=== PATIENT | female | born 1950 | race Caucasian/White ===

== ENCOUNTER 2024-10-09 20:27 | Inpatient (IN) | payer MEDICARE, OTHER ==
[~2024-10-09] VITALS: Ht 152.4 cm; Wt 56.3 kg
[2024-10-09 21:25] LABS: CALCIUM, SERUM 8.9 mg/dL (8.5-10.1); CARBON DIOXIDE 23 mmol/L (21-32); CHLORIDE 113 mmol/L (98-107); CREATININE 1.1 mg/dL (0.6-1.3); GLUCOSE 170 mg/dL (74-106); POTASSIUM 4.4 mmol/L (3.5-5.1); SODIUM SERUM 144 mmol/L (136-145); UREA NITROGEN, BLOOD 28 mg/dL (7-18)
[2024-10-09 21:28] LABS: INR 1.07 (0.91-1.10); PARTIAL THROMBOPLASTIN TIME 25.6 SEC (24.3-34.3); SERUM AMMONIA 11 umol/L (11-32)
[2024-10-09 21:30] LABS: ALANINE AMINOTRANSFERASE 38 U/L (12-78); ALKALINE PHOSPHATASE 133 U/L (46-116); ASPARTATE AMINOTRANSFERASE 38 U/L (15-37); BILIRUBIN,DIRECT 0.2 mg/dL (0.0-0.2); BILIRUBIN,TOTAL 0.5 mg/dL (0.2-1.0)
[2024-10-09 21:31] LABS: HEMATOCRIT 34 % (39-51); HEMOGLOBIN 11.4 g/dL (13.5-17.5); MEAN CORPUSCULAR HEMOGLOBIN 30 PG (26.0-33.0); MEAN CORPUSCULAR VOLUME 89 fL (80-96); RED BLOOD CELL COUNT(AUTO) 3.77 MIL/uL (4.5-6.0); WHITE BLOOD COUNT (AUTO) 5.8 K/uL (4.3-11.0)
[2024-10-09 21:32] LABS: BASOPHILS % (AUTO) 0.6 % (0.0-2.0); EOSINOPHILS % (AUTO) 1.2 % (0.0-6.0); LYMPHOCYTES % (AUTO) 26.9 % (20.0-44.0); MEAN CORPUSCULAR HGB CONC 34 g/dl (31.0-36.0); MONOCYTES % (AUTO) 6.8 % (2.0-12.0); NEUTROPHILS % (AUTO) 64.5 % (43.0-81.0); PLATELET COUNT (AUTO) 205 K/uL (150-450); RED CELL DISTRIBUTION WIDTH 16.4 % (11.5-15.0)
[2024-10-09 22:51] LABS: LACTIC ACID 1.6 mmol/L (0.4-2.0)
[2024-10-09 22:52] LABS: ACETAMINOPHEN <10 ug/ml (10-30); ALCOHOL, BLOOD < 3 mg/dL (0-10); SALICYLATE 1.3 mg/dL (2.8-20.0)
[2024-10-09] MEDS ORDERED: LORAZEPAM INJ 2 MG/ML VIAL ONE (23:03)
[2024-10-09 23:14] LABS: APPEARANCE,URINE CLEAR (CLEAR); BILIRUBIN,URINE NEGATIVE (NEGATIVE); BLOOD, URINE NEGATIVE Ery/uL (NEGATIVE); COLOR,URINE YELLOW (YELLOW); KETONES,URINE NEGATIVE (NEGATIVE); LEUKOCYTE ESTERASE ,URINE NEGATIVE (NEGATIVE); NITRITE, URINE NEGATIVE (NEGATIVE); PROTEIN,URINE NEGATIVE (NEGATIVE); UGLUCOSE NEGATIVE (NEGATIVE)
[2024-10-09] MEDS: LORAZEPAM INJ 2 MG/ML VIAL IV ONE (23:14)
[2024-10-09 23:29] LABS: AMPHETAMINE, URINE NEGATIVE (NEGATIVE); BARBITURATE, URINE NEGATIVE (NEGATIVE); BENZODIAZEPINE, URINE NEGATIVE (NEGATIVE); CANNABINOID, URINE NEGATIVE (NEGATIVE); COCCAINE, URINE NEGATIVE (NEGATIVE); OPIATE, URINE NEGATIVE (NEGATIVE); PHENCYCLIDINE SCREEN,URINE NEGATIVE (NEGATIVE)
[2024-10-09 23:37] LABS: ADD URINE CULTURE YES; BACTERIA,URINE Many /HPF (None Seen)
[2024-10-10] MEDS ORDERED: ACETAMINOPHEN 325 MG TABLET PO PRN (00:30)
[2024-10-10] MEDS ORDERED: ONDANSETRON HCL/PF 4 MG/2 ML VIAL IVP PRN (00:30)
[2024-10-10] MEDS ORDERED: ENOXAPARIN SODIUM 40 MG/0.4 ML DISP.SYRIN SQ SCH (00:30)
[2024-10-10] MEDS ORDERED: MAG HYDROX/AL HYDROX/SIMETH 30 ML UDC PO PRN (00:30)
[2024-10-10] MEDS ORDERED: MAGNESIUM HYDROXIDE 30 ML UDC PO PRN (00:30)
[2024-10-10] MEDS ORDERED: Z GUARD REMEDY 4 OZ OINT TP PRN (00:30)
[2024-10-10] MEDS ORDERED: CEFTRIAXONE 1GM BAG (ER ONLY) 50 ML IV ONE (01:56)
[2024-10-10] MEDS ORDERED: ENOXAPARIN SODIUM 60 MG/0.6 ML DISP.SYRIN SQ ONE (01:56)
[2024-10-10] MEDS ORDERED: CEFTRIAXONE 1 G in IV D5W 50 ML IV ONE (02:00)
[2024-10-10] MEDS: CEFTRIAXONE 1 G in IV D5W 50 ML IV SCH (02:00)
[2024-10-10] MEDS: ENOXAPARIN SODIUM 40 MG/0.4 ML DISP.SYRIN SQ SCH (02:05)
[2024-10-10 05:45] LABS: BASOPHILS % (AUTO) 0.4 % (0.0-2.0); HEMATOCRIT 36 % (33-45); HEMOGLOBIN 11.7 g/dL (11.5-14.8); LYMPHOCYTES # (AUTO) 1.3 K/uL (0.8-4.8); LYMPHOCYTES % (AUTO) 26.7 % (20.0-44.0); MEAN CORPUSCULAR HEMOGLOBIN 30 PG (26.0-33.0); MEAN CORPUSCULAR HGB CONC 33 g/dl (31.0-36.0); MEAN CORPUSCULAR VOLUME 92 fL (82-100); MONOCYTES # (AUTO) 0.3 K/uL (0.1-1.30); MONOCYTES % (AUTO) 6.7 % (2.0-12.0); NEUTROPHILS # (AUTO) 3.2 K/uL (1.8-8.9); NEUTROPHILS % (AUTO) 65.2 % (43.0-81.0); PLATELET COUNT (AUTO) 169 K/uL (150-450); RED BLOOD CELL COUNT(AUTO) 3.89 MIL/uL (4.0-5.2); RED CELL DISTRIBUTION WIDTH 15.9 % (11.5-15.0); WHITE BLOOD COUNT (AUTO) 4.9 K/uL (4.3-11.0)
[2024-10-10 05:55] LABS: ALBUMIN 3.1 g/dL (3.4-5.0); CARBON DIOXIDE 22 mmol/L (21-32); CHLORIDE 113 mmol/L (98-107); CREATININE 0.9 mg/dL (0.6-1.3); GLUCOSE 130 mg/dL (74-106); MAGNESIUM 2.2 mg/dL (1.8-2.4); PHOSPHORUS 3.2 mg/dL (2.5-4.9); SODIUM SERUM 143 mmol/L (136-145); UREA NITROGEN, BLOOD 22 mg/dL (7-18)
[2024-10-10] MEDS ORDERED: BISA10SU11 RC (08:34)
[2024-10-10] MEDS ORDERED: LATA7.5D RIGHTEYE (08:34)
[2024-10-10] MEDS ORDERED: QUET25TA PO (08:34)
[2024-10-10] MEDS ORDERED: HYOS0.1286 SL (08:34)
[2024-10-10] MEDS ORDERED: ACET-868 PO (08:34)
[2024-10-10] MEDS ORDERED: AZEL6DRO5 RIGHTEYE (08:34)
[2024-10-10] MEDS ORDERED: LORA2ORA5 SL (08:34)
[2024-10-10] MEDS ORDERED: BRIM5DRO2 EACHEYE (08:34)
[2024-10-10] MEDS ORDERED: SODI3.5O6 EACHEYE (08:34)
[2024-10-10] MEDS ORDERED: SERT50TA PO (08:34)
[2024-10-10] MEDS ORDERED: MEGE400O6 PO (08:34)
[2024-10-10] MEDS ORDERED: MORP100S3 SL (08:34)
[2024-10-10] MEDS ORDERED: RISP1TAB7 PO (08:34)
[2024-10-10] MEDS ORDERED: SODI3.5O5 RIGHTEYE (08:34)
[2024-10-10] MEDS ORDERED: ACET650S11 RC (08:34)
[2024-10-10] MEDS ORDERED: ONDA4TAB5 PO (08:34)
[2024-10-10 08:35] VITALS: BP 142/89; TEMP 97.5; O2SAT 99
[2024-10-10] MEDS: ENOXAPARIN SODIUM 60 MG/0.6 ML DISP.SYRIN SQ SCH (09:00)
[2024-10-10] MEDS: PANTOPRAZOLE 40 MG VIAL IV SCH (09:06)
[2024-10-10] MEDS: IV NS 0.9% 1,000 ML IV PRN (11:01)
[2024-10-10 12:00] VITALS: BP 135/89; TEMP 97.1; O2SAT 96
[2024-10-10 16:00] VITALS: BP 129/81; TEMP 97.5; O2SAT 98
[2024-10-10 20:00] VITALS: BP 155/92; TEMP 97.9; O2SAT 95
[2024-10-11] VITALS: BP 161/99; TEMP 97.7; O2SAT 98
[2024-10-11 04:00] VITALS: BP 133/73; TEMP 99; O2SAT 100
[2024-10-11 08:00] VITALS: BP 143/89; TEMP 97.9; O2SAT 100
[2024-10-11 10:47] LABS: BASOPHILS % (AUTO) 0.5 % (0.0-2.0); EOSINOPHILS % (AUTO) 0.5 % (0.0-6.0); HEMATOCRIT 33 % (33-45); HEMOGLOBIN 10.8 g/dL (11.5-14.8); LYMPHOCYTES # (AUTO) 1.4 K/uL (0.8-4.8); MEAN CORPUSCULAR HEMOGLOBIN 30 PG (26.0-33.0); MEAN CORPUSCULAR HGB CONC 33 g/dl (31.0-36.0); MEAN CORPUSCULAR VOLUME 91 fL (82-100); MONOCYTES # (AUTO) 0.3 K/uL (0.1-1.30); MONOCYTES % (AUTO) 7.6 % (2.0-12.0); NEUTROPHILS # (AUTO) 2.8 K/uL (1.8-8.9); NEUTROPHILS % (AUTO) 61.4 % (43.0-81.0); PLATELET COUNT (AUTO) 172 K/uL (150-450); RED CELL DISTRIBUTION WIDTH 15.9 % (11.5-15.0); WHITE BLOOD COUNT (AUTO) 4.6 K/uL (4.3-11.0)
[2024-10-11 11:03] LABS: CALCIUM, SERUM 8.6 mg/dL (8.5-10.1); CARBON DIOXIDE 20 mmol/L (21-32); CHLORIDE 113 mmol/L (98-107); CREATININE 0.8 mg/dL (0.6-1.3); GLUCOSE 107 mg/dL (74-106); MAGNESIUM 2.1 mg/dL (1.8-2.4); PHOSPHORUS 3.9 mg/dL (2.5-4.9); POTASSIUM 4.4 mmol/L (3.5-5.1); SODIUM SERUM 144 mmol/L (136-145); UREA NITROGEN, BLOOD 17 mg/dL (7-18)
[2024-10-11 12:00] VITALS: BP 129/78; TEMP 97.8; O2SAT 97
[2024-10-11 16:00] VITALS: BP 126/81; TEMP 97.8; O2SAT 100
[2024-10-11] MEDS ORDERED: ACETAMINOPHEN 650 MG/SUPP.RECT RC PRN (19:00)
[2024-10-11] MEDS ORDERED: HYOSCYAMINE SULFATE 0.125 MG TAB.SUBL SL PRN (19:00)
[2024-10-11] MEDS ORDERED: BISACODYL SUPP (10 MG) 10 MG/SUPP.RECT SUPP.RECT RC PRN (19:00)
[2024-10-11 20:00] VITALS: BP 140/90; TEMP 98.6; O2SAT 98
[2024-10-11] MEDS: risperiDONE 1 MG TABLET PO SCH (21:11)
[2024-10-11] MEDS: QUETIAPINE FUMARATE 25 MG TABLET PO SCH (22:04)
[2024-10-12] VITALS (7 sets, daily range): BP systolic 124–153; BP diastolic 79–89; TEMP 97.5–98.4; O2SAT 92–98
[2024-10-12] MEDS: LORAZEPAM 1 MG TABLET PO SCH (00:29)
[2024-10-12 08:19] LABS: CALCIUM, SERUM 8.5 mg/dL (8.5-10.1); CREATININE 0.8 mg/dL (0.6-1.3); MAGNESIUM 2.1 mg/dL (1.8-2.4); PHOSPHORUS 3.6 mg/dL (2.5-4.9); POTASSIUM 5.1 mmol/L (3.5-5.1)
[2024-10-12 08:24] LABS: BASOPHILS % (AUTO) 0.4 % (0.0-2.0); HEMATOCRIT 30 % (33-45); LYMPHOCYTES # (AUTO) 1.1 K/uL (0.8-4.8); LYMPHOCYTES % (AUTO) 28.5 % (20.0-44.0); MEAN CORPUSCULAR HEMOGLOBIN 30 PG (26.0-33.0); MEAN CORPUSCULAR HGB CONC 33 g/dl (31.0-36.0); MEAN CORPUSCULAR VOLUME 90 fL (82-100); MONOCYTES # (AUTO) 0.2 K/uL (0.1-1.30); MONOCYTES % (AUTO) 6.3 % (2.0-12.0); NEUTROPHILS # (AUTO) 2.4 K/uL (1.8-8.9); NEUTROPHILS % (AUTO) 63.8 % (43.0-81.0); PLATELET COUNT (AUTO) 157 K/uL (150-450); RED BLOOD CELL COUNT(AUTO) 3.36 MIL/uL (4.0-5.2); RED CELL DISTRIBUTION WIDTH 15.7 % (11.5-15.0); WHITE BLOOD COUNT (AUTO) 3.8 K/uL (4.3-11.0)
[2024-10-12] MEDS: MEGESTROL ACETATE SUSP 400 MG/10 ML UDC PO SCH (09:07)
[2024-10-12] MEDS: SERTRALINE HCL 50 MG TABLET PO SCH (09:08)
[2024-10-12] MEDS: ACETAMINOPHEN 325 MG TABLET PO SCH (09:08)
[2024-10-12] MEDS: PANTOPRAZOLE 40 MG TABLET.DR PO SCH (09:08)
[2024-10-12] MEDS: SODIUM CHLORIDE 5% OPHTH OINT 3.5 GM TUBE EACHEYE SCH (09:09)
[2024-10-13 04:00] VITALS: BP 142/76; TEMP 97.7; O2SAT 98
[2024-10-13 07:30] VITALS: BP 135/77; TEMP 98.2; O2SAT 96
[2024-10-13 15:30] VITALS: BP 117/70; TEMP 98.1; O2SAT 96
[2024-10-13] MEDS ORDERED: ENSURE ENLIVE CHOC 237 ML CAN PO SCH (17:00)
== END 2024-10-13 18:07 | DRG 91 ==
LOC: ER 20:36 → TRANSITION 10-10 02:09 → EDSEX 10-10 02:09 → TELE1 10-10 07:31 → MEDSG1 10-12 09:41 → TELE 10-12 16:13 → MED 10-12 17:03
PROVIDERS: ADMIT Nurse Practitioner Family; ATTEND Nurse Practitioner Acute Care
DX: G92.8 Other toxic encephalopathy (principal); I21.A1 Myocardial infarction type 2; D68.59 Other primary thrombophilia; E44.1 Mild protein-calorie malnutrition; F20.0 Paranoid schizophrenia; R45.851 Suicidal ideations; Z66 Do not resuscitate; I10 Essential (primary) hypertension; E11.65 Type 2 diabetes mellitus with hyperglycemia; F31.9 Bipolar disorder, unspecified; F39 Unspecified mood [affective] disorder; Z79.899 Other long term (current) drug therapy; E03.9 Hypothyroidism, unspecified; D63.8 Anemia in other chronic diseases classified elsewhere; R79.89 Other specified abnormal findings of blood chemistry; E88.09 Other disorders of plasma-protein metabolism, not elsewhere classified; E78.5 Hyperlipidemia, unspecified; T42.4X5A Adverse effect of benzodiazepines, initial encounter; T40.2X5A Adverse effect of other opioids, initial encounter; Y92.9 Unspecified place or not applicable
CPT/HCPCS: 36415; 70450-TC; 71045-TC; 80048-TC; 80076-TC; 81001; 82040-TC; 82140-TC; 82962-TC; 83605-TC; 83735-TC; 84100-TC; 84443-TC; 84484-TC; 85025-TC; 85730-TC; 87040-TC; 87081-TC; 87086-TC; 92526; 92611-TC; 93307-TC; A4223; G0378; G0480; J0696; J1650; J2060; J2405; J2470; J7030; J7060